=== PATIENT | male | born 1985 | race African-American/Black ===

== ENCOUNTER 2018-06-15 00:55 | Emergency (ER) | payer OTHER ==
[~2018-06-15] VITALS: Ht 162.6 cm; Wt 86.4 kg
[2018-06-15] MEDS ORDERED: NAPR-49 PO (03:54)
[2018-06-15] MEDS ORDERED: CYCL10TA PO (03:54)
[2018-06-15 03:59] VITALS: BP 117/74
[2018-06-15] MEDS ORDERED: CYCLOBENZAPRINE 10 MG TAB PO ONE (04:00)
--- NOTE | 2018-06-15 07:50 | REP ---
Left shoulder series: Three views. History: Pain. Findings: The left glenohumeral and acromioclavicular joints are normally aligned. Periarticular soft tissues are unremarkable. No fractures seen. Impression: Negative radiographs of the left shoulder. Electronically Signed by Benton Wells MD 06/15/2018 07:41 A
== END 2018-06-15 04:05 | disposition home or self-care (01) ==
LOC: M ED 00:55
DX: M25.512 Pain in left shoulder (principal)

== ENCOUNTER 2018-08-29 08:48 | Emergency (ER) | payer OTHER ==
[~2018-08-29] VITALS: Ht 162.6 cm; Wt 92.7 kg
[~2018-08-29 08:48] MED LIST: CYCL10TA PO; NAPR-50 PO
[2018-08-29 08:49] VITALS: BP 125/77
[2018-08-29] MEDS ORDERED: IBUP80TA PO (08:56)
[2018-08-29] MEDS ORDERED: NAPR-50 PO (09:45)
[2018-08-29] MEDS ORDERED: ROBA500T PO (09:45)
== END 2018-08-29 10:23 | disposition home or self-care (01) ==
LOC: M ED 08:48
DX: S29.012A Strain of muscle and tendon of back wall of thorax, initial encounter (principal); X50.0XXA Overexertion from strenuous movement or load, initial encounter; Y92.9 Unspecified place or not applicable; Y93.9 Activity, unspecified; Y99.1 Military activity

== ENCOUNTER → 2020-09-30 | Outpatient (CLI) | payer OTHER ==
[~2020-09-30] MED LIST changes: +CYCL-707 PO; -CYCL10TA PO; +IBUP80TA PO; -NAPR-50 PO; +NAPR-837 PO; +ROBA500T PO
--- NOTE | 2020-09-30 14:27 | REP ---
INDICATION: RADICULOPATHY, CERVICOTHORACIC REGION. COMPARISON: None. TECHNIQUE: Plain films of the cervical spine include AP and lateral views. FINDINGS: Spinal alignment is within normal limits. No evidence of fracture or subluxation. Vertebral heights and disc heights overall appear preserved. Degenerative changes appear mild. IMPRESSION: Normal examination. Consider MRI for further evaluation as clinically indicated. <Electronically signed by Ross Vickers > 09/30/20 [id number]
--- NOTE | 2020-09-30 14:29 | REP ---
INDICATION: RADICULOPATHY, CERVICOTHORACIC REGION. COMPARISON: None. TECHNIQUE: Plain films of the thoracic spine FINDINGS: No evidence of fracture or subluxation. Vertebral heights and disc heights appear preserved. Only mild degenerative change seen in the upper thoracic vertebrae. Go no evidence of an osseous canal or foraminal stenosis on plain film study. IMPRESSION: Normal examination. <Electronically signed by Ross Vickers > 09/30/20 [id number]
--- NOTE | 2020-09-30 14:30 | REP ---
INDICATION: RADICULOPATHY, CERVICOTHORACIC REGION. COMPARISON: None. TECHNIQUE: Plain film study of the lumbar spine. FINDINGS: No evidence of fracture or subluxation. Vertebral heights and disc heights overall appear preserved. No evidence of an osseous canal or foraminal stenosis. IMPRESSION: Normal examination. If symptoms persist, consider MRI for further evaluation. <Electronically signed by Ross Vickers > 09/30/20 [id number]
== END ==
LOC: M RAD 11:47
PROVIDERS: ATTEND Chiropractor
DX: M99.83 Other biomechanical lesions of lumbar region (principal); M54.13 Radiculopathy, cervicothoracic region; M54.41 Lumbago with sciatica, right side